=== PATIENT | male | born 1965 | race Caucasian/White ===

== ENCOUNTER 2021-05-09 12:47 | Emergency (ER) | payer OTHER ==
[~2021-05-09] VITALS: Ht 188 cm; Wt 111.4 kg
--- NOTE | 2021-05-09 15:10 | NUR ---
CORBIN HOLBROOK AT BEDSIDE.
[2021-05-09] MEDS ORDERED: HYDROcodone/APAP 5/325 TABLET ONE (15:20)
[2021-05-09] MEDS ORDERED: HYDROcodone/APAP 5/325 TABLET PO ONE (15:30)
[2021-05-09 15:32] VITALS: BP 116/72
--- NOTE | 2021-05-09 15:34 | NUR ---
PT MEDICATED PER EMAR.
--- NOTE | 2021-05-09 16:09 | NUR ---
Patient given discharge instructions and they have confirmed that they understand the instructions. Patient ambulatory with steady gait.
== END 2021-05-09 16:11 | disposition home or self-care (01) ==
LOC: ED 16:00
DX: S39.012A Strain of muscle, fascia and tendon of lower back, initial encounter (principal); M51.36 Other intervertebral disc degeneration, lumbar region; E11.40 Type 2 diabetes mellitus with diabetic neuropathy, unspecified; V43.11XA Car passenger injured in collision with sport utility vehicle in nontraffic accident, initial encounter; Y93.89 Activity, other specified; Y92.410 Unspecified street and highway as the place of occurrence of the external cause; Y99.8 Other external cause status
CPT/HCPCS: 72110; 99283